=== PATIENT | male | born 1980 | race Caucasian/White ===

== ENCOUNTER 2024-07-02 12:04 | Emergency (ER) | payer BC, SELFPAY ==
[2024-07-02 12:09] VITALS: BP 184/111; BMI 34.7
--- NOTE | 2024-07-02 14:04 | ED.GENMED ---
History of Present Illness
General
Chief Complaint: Eye Problems
Source: patient
Exam Limitations: none
Time Seen by Provider: 07/02/24 13:01
Nursing documentation reviewed up to this point in time: agreed with
History of Present Illness
History of Present Illness:
44-year-old male presenting to the emergency department today with concerns of right-sided eye irritation over the past 3 days. He is unsure something got in his eye does have intermittent worsening pain. He has been using leftover erythromycin
ointment to the area from a previous injury. Denies additional concerns otherwise. Unsure of any trauma or injury to the area.
Past History
Past History
ED Past Medical History: None
ED Past Surgical History: None
Social History
Tobacco: Non-smoker
Personal: Single
Review of Systems
Review of Systems
Allergies reviewed?: Yes
All Other Systems: ROS reviewed and negative except as documented in HPI and ROS
Phy Exam
Physical Exam
Physical Exam:
GENERAL: Alert , in no apparent distress
EYE: Normal visual acuity, 2 mm corneal abrasion to the 6:00 portion of the cornea otherwise no foreign signs of foreign body with eyelid everted. Normal slit-lamp examination other than the corneal abrasion that also was apparent on fluorescein
exam. Normal eye pressure pupils equal and reactive
NECK: Supple, no significant adenopathy.
ENT: o/p clr, mmm.
CARDIAC: Regular rate and rhythm .
LUNGS: Clear breath sounds bilaterally, no acute respiratory distress, no wheezes/rales/rhonchi
ABDOMEN: Soft, without focal tenderness, no r/g, no cvat
NEUROLOGICAL: Alert and oriented, no focal neuro deficits
SKIN: Warm and dry, skin intact.
MUSCULOSKELETAL: No edema, well perfused.
PSYCH: Normal and appropriate interaction.
Course
Vital Signs
Initial and Last Documented VS:
Initial Vital Signs
Temp Pulse Resp BP Pulse Ox
98.2 F 80 16 184/111 99
07/02/24 12:09 07/02/24 12:09 07/02/24 12:07/02/24 12:07/02/24 12:09
Last Documented Vital Signs
Temp Pulse Resp BP Pulse Ox
98.2 F 80 16 184/111 99
07/02/24 12:09 07/02/24 12:09 07/02/24 12:07/02/24 12:07/02/24 12:09
MDM/Problems Addressed
MDM/Problems Addressed:
44-year-old male presenting to the emergency department today with concerns of irritation to his right eye over the past few days. Patient was found to have a corneal abrasion. Treat with antibiotic ointment. Otherwise normal eye pressure in the
teens on tonometer. Symptoms fully relieved after using tetracaine. Advised for close follow-up with ophthalmology return precautions given.
*Critical Care Note
Total Time (30-74mins, 75-104mins- exclusive of procedures): Not Applicable
ED Attending Note
-
Portions of this chart may have been created with voice recognition software.� Occasional wrong word or��sound alike� substitutions may have occurred due to the inherent limitations of voice recognition software.
Discharge Plan
Departure
Patient Disposition: Home (Routine Discharge)
Date of Disposition: 07/02/24
Time of Disposition: 14:04
Patient with high blood pressure during this ER visit?: No
Condition: Good
Covid-19: Not Applicable
Discharge Problem:
Abrasion, corneal
Instructions: Corneal Abrasion (DC)
Prescriptions:
New
erythromycin 5 mg/gram (0.5 %) ointment
0.5 inch ophthalmic (eye) BID Qty: 3.5 0RF
ofloxacin 0.3 % drops
2 drp ophthalmic (eye) QID Qty: 10 0RF
No Action
ibuprofen 400 MG tablet
400 mg PO
amoxicillin-pot clavulanate 1 EACH tablet
1 ea PO BID
clindamycin HCl 300 MG capsule
300 mg PO TID Qty: 21 0RF
prednisone 50 MG tablet
50 mg PO DAILY Qty: 5 0RF
erythromycin 5 mg/gram (0.5 %) ointment
1 applic ophthalmic (eye) TID Qty: 3.5 0RF
Referrals:
Beatrice Clement MD [Active] - Follow up in 2-3 days
NONE,* [Family Provider] -
Activity Restrictions/Additional Instructions:
You came to the emergency department today with concerns of eye irritation. You are found have a corneal abrasion at the 6:00 portion of the eye. Please keep the eye clean and use the antibiotic drops and ointment and follow-up closely with
ophthalmology. Return to the emergency department for any worsening, new or concerning symptoms.
Interventions
Interventions:
*Risk Screen - Suicide Last Done: 07/02/24 12:09
*General Assessment Last Done: 07/02/24 12:27
*Neglect/Abuse Screening Last Done: 07/02/24 12:09
ED- Fall Risk Assessment Last Done: 07/02/24 12:09
*ED COVID-19 Vaccine History Last Done: 07/02/24 12:27
Discharge Date and Time
Print Language: PALESTINIAN
[2024-07-02 14:23] VITALS: BP 155/115
== END 2024-07-02 14:24 | disposition home or self-care (01) ==
LOC: EMR 12:04
PROVIDERS: EMERGENCY PHYSICIAN Emergency Medicine
DX: S05.01XA Injury of conjunctiva and corneal abrasion without foreign body, right eye, initial encounter (principal); X58.XXXA Exposure to other specified factors, initial encounter
CPT/HCPCS: 99283